=== PATIENT | male | born 2000 | race Caucasian/White ===

== ENCOUNTER 2018-04-19 15:35 | Emergency (ER) | payer OTHER ==
[2018-04-19] MEDS ORDERED: NORMAL SALINE 1000 ML 1,000 ML IV ONE (17:08)
--- NOTE | 2018-04-19 17:14 | ER Document Report ---
ED Medical Screen (RME) - General Chief Complaint: Swallowed Foreign Body Stated Complaint: FOOD STUCK IN ESOPHAGUS Time Seen by Provider: 04/19/18 17:05 Mode of Arrival: Ambulatory Information source: Patient Notes: This is a 17-year-old man who presents to the emergency room with a food bolus stuck in the esophagus since 11:15 AM. Patient states he was eating chicken. Patient states that this has happened before and he had an EGD for a food bolus 2 years ago in [place]. He states that food does often get stuck and he can usually coax it down into his stomach with some carbonated drinks. He has been unable to do that today. He denies any medicines or allergies. Dr. Hernandez was called. They should be getting the endoscopy team in in approximately 1 hour. TRAVEL OUTSIDE OF THE [place] IN LAST 30 DAYS: No - Related Data Allergies/Adverse Reactions: No Known Allergies Allergy (Unverified 04/19/18 15:46) Past Medical History - Social History Chew tobacco use (# tins/day): No Frequency of alcohol use: Occasional Drug Abuse: None Renal/ Medical History: Denies: Hx Peritoneal Dialysis Physical Exam - Vital signs Vitals: Temp Pulse Resp BP Pulse Ox 98.0 F 76 14 119/64 97 04/19/18 15:50 04/19/18 15:50 04/19/18 15:50 04/19/18 15:50 04/19/18 15:50 Course - Vital Signs Vital signs: Temp Pulse Resp BP Pulse Ox 98.0 F 76 14 119/64 97 04/19/18 15:50 04/19/18 15:50 04/19/18 15:50 04/19/18 15:50 04/19/18 15:50
[2018-04-19] MEDS ORDERED: FENTANYL CITRATE INJ/PF 100 MCG/2 ML AMPUL ONE (18:02)
[2018-04-19] MEDS ORDERED: ONDANSETRON HCL INJ/PF 4 MG/2 ML SDV ONE (18:02)
[2018-04-19] MEDS ORDERED: DIPHENHYDRAMINE HCL 50 MG/ML VIAL ONE (18:02)
--- NOTE | 2018-04-19 18:02 | ER Document Report ---
ED Foreign Body - General Chief Complaint: Swallowed Foreign Body Stated Complaint: FOOD STUCK IN ESOPHAGUS Time Seen by Provider: 04/19/18 17:05 Mode of Arrival: Ambulatory Information source: Patient TRAVEL OUTSIDE OF THE [place] IN LAST 30 DAYS: No - HPI Patient complains to provider of: Esophageal foreign body Location of foreign body: Throat Onset: This morning Onset/Duration: Sudden Quality of pain: Achy Severity: Mild Pain Level: 1 Notes: Patient is a 17-year-old male who is otherwise healthy, presenting to the emergency room complaining of esophageal food bolus, times approximately 2 years ago and required endoscopy, at home he did try drinking soda and was unsuccessful, he does report eating chicken around 11:00 this morning which is what he believes to be stuck in his esophagus, otherwise he has had nothing to eat or drink, is unable to swallow his secretions, complains of some epigastric pain, denies any history of complications secondary to anesthesia - Related Data Allergies/Adverse Reactions: No Known Allergies Allergy (Unverified 04/19/18 15:46) Past Medical History - General Information source: Patient - Social History Smoking Status: Never Smoker Chew tobacco use (# tins/day): No Frequency of alcohol use: Occasional Drug Abuse: None Family History: Reviewed & Not Pertinent Patient has suicidal ideation: No Patient has homicidal ideation: No Renal/ Medical History: Denies: Hx Peritoneal Dialysis Review of Systems - Review of Systems Constitutional: No symptoms reported EENT: No symptoms reported Cardiovascular: No symptoms reported Respiratory: No symptoms reported Gastrointestinal: See HPI Genitourinary: No symptoms reported Male Genitourinary: No symptoms reported Musculoskeletal: No symptoms reported Skin: No symptoms reported Hematologic/Lymphatic: No symptoms reported Neurological/Psychological: No symptoms reported -: Yes All other systems reviewed and negative Physical Exam - Vital signs Vitals: Temp Pulse Resp BP Pulse Ox 98.0 F 76 14 119/64 97 04/19/18 15:50 04/19/18 15:50 04/19/18 15:50 04/19/18 15:50 04/19/18 15:50 Interpretation: Normal - General General appearance: Appears well, Alert In distress: None - HEENT Head: Normocephalic, Atraumatic Eyes: Normal Conjunctiva: Normal Extraocular movements intact: Yes Eyelashes: Normal Pupils: PERRL Pharynx: Normal - Respiratory Respiratory status: No respiratory distress Chest status: Nontender Breath sounds: Normal Chest palpation: Normal - Cardiovascular Rhythm: Regular Heart sounds: Normal auscultation Murmur: No - Abdominal Inspection: Normal Distension: No distension Bowel sounds: Normal Tenderness: Nontender Organomegaly: No organomegaly - Back Back: Normal, Nontender - Extremities General upper extremity: Normal inspection, Nontender, Normal color, Normal ROM , Normal temperature General lower extremity: Normal inspection, Nontender, Normal color, Normal ROM , Normal temperature, Normal weight bearing. No: Anthony's sign - Neurological Neuro grossly intact: Yes Cognition: Normal Orientation: AAOx4 Halie Coma Scale Eye Opening: Spontaneous [place] Coma Scale Verbal: Oriented [place] Coma Scale Motor: Obeys Commands Halie Coma Scale Total: 15 Speech: Normal Motor strength normal: LUE, RUE, LLE, RLE Sensory: Normal - Psychological Associated symptoms: Normal affect, Normal mood - Skin Skin Temperature: Warm Skin Moisture: Dry Skin Color: Normal Course - Re-evaluation Re-evalutation: 04/19/18 18:41 Patient was discussed with Dr. Bowens, on-call surgeon by the physician in triage, who will perform endoscopy in an attempt to remove the esophageal food bolus 04/19/18 19:25 Patient return to the emergency department from endoscopy feeling much better, Dr. Bowens was able to remove the large piece of chicken from his distal esophagus, patient will be discharged with instructions for follow-up and advised to return if symptoms worsen, he was advised to cut his food up into much smaller pieces prior to eating in the future, patient acknowledges understanding and agreement with this plan - Vital Signs Vital signs: Temp Pulse Resp BP Pulse Ox 98.0 F 68 11 L 112/57 L 99 04/19/18 15:50 04/19/18 19:10 04/19/18 19:10 04/19/18 19:10 04/19/18 19:10 - Laboratory Result Diagrams: 04/19/18 17:56 04/19/18 17:56 Laboratory results interpreted by me: 04/19/18 04/19/18 17:56 17:56 Eosinophils % 6.9 H Calcium 10.3 H Total Protein 8.4 H Discharge - Discharge Clinical Impression: Esophageal foreign body Condition: Stable Disposition: HOME, SELF-CARE Instructions: Esophageal Foreign Body ([facility]), Esophageal Food Impaction ([facility]) Additional Instructions: Follow up with your primary care provider and smt machine operator in one to 2 days. Return to the emergency room immediately if symptoms worsen or any additional concerns.
[2018-04-19] MEDS ORDERED: FLUMAZENIL INJ 0.5 MG/5 ML VIAL ONE (18:03)
[2018-04-19] MEDS ORDERED: NALOXONE HCL INJ/PF 0.4 MG/1 ML SDV ONE (18:03)
[2018-04-19] MEDS ORDERED: EPINEPHRINE INJ 1 MG/10 ML DISP.SYRIN ONE (18:03)
[2018-04-19] MEDS ORDERED: GLUCAGON,HUMAN RECOMB 1 MG INJ ONE (18:03)
[2018-04-19 18:04] LABS: ABSOLUTE BASOPHILS # (AUTO) 0.1 10^3/uL (0.0-0.2); ABSOLUTE EOSINOPHILS # (AUTO) 0.4 10^3/uL (0.0-0.6); ABSOLUTE LYMPHOCYTES (AUTO) 1.9 10^3/uL (0.5-4.7); ABSOLUTE MONOCYTES (AUTO) 0.6 10^3/uL (0.1-1.4); ABSOLUTE NEUT (AUTO) 3.2 10^3/uL (1.7-8.2); EOSINOPHILS % (AUTO) 6.9 % (0-6); HEMATOCRIT 46.1 % (37.9-51.0); LYMPHOCYTES % (AUTO) 30.9 % (13-45); MEAN CORPUSCULAR HEMOGLOBIN 29.6 pg (27.0-33.4); MEAN CORPUSCULAR HGB CONC 34.7 g/dL (32.0-36.0); MEAN CORPUSCULAR VOLUME 85 fl (80-97); PLATELET COUNT 216 10^3/uL (150-450); RED BLOOD COUNT 5.41 10^6/uL (4.35-5.55); RED CELL DISTRIBUTION WIDTH 12.6 % (11.5-14.0); SEGMENTED NEUTROPHILS % (AUTO) 52.2 % (42-78); TOTAL CELLS COUNTED % (AUTO) 100 %; WHITE BLOOD COUNT 6.1 10^3/uL (4.0-10.5)
[2018-04-19 18:14] LABS: INTERNATIONAL RATION (INR) 1.04; PROTHROMBIN TIME 14.1 SEC (11.4-15.4)
[2018-04-19 18:22] LABS: ALANINE AMINOTRANSFERASE 21 U/L (10-40); ALBUMIN 5.2 g/dL (3.7-5.6); ALKALINE PHOSPHATASE 89 U/L (65-260); ANION GAP 14 (5-19); ASPARTATE AMINO TRANSFERASE 30 U/L (10-45); BILIRUBIN,DIRECT 0.3 mg/dL (0.0-0.4); BILIRUBIN,TOTAL 0.8 mg/dL (0.2-1.3); BLOOD UREA NITROGEN 16 mg/dL (7-20); CALCIUM 10.3 mg/dL (8.4-10.2); CARBON DIOXIDE 28 mmol/L (22-30); CHLORIDE 101 mmol/L (98-107); GLUCOSE 98 mg/dL (75-110); POTASSIUM 4.8 mmol/L (3.6-5.0); TOTAL PROTEIN 8.4 g/dL (6.3-8.2)
[2018-04-19] MEDS: MIDAZOLAM 2 MG/2 ML INJ ONE ×3 (18:37→18:45)
[2018-04-19 19:31] VITALS: BP 112/63
--- NOTE | 2018-04-19 20:20 | Operative Report ---
Operative Report DATE OF SURGERY: 04/19/18 PREOPERATIVE DIAGNOSIS: Retained foreign body of the esophagus POSTOPERATIVE DIAGNOSIS: same with distal esophageal stricture OPERATION: 1. Esophagogastroduodenoscopy. 2. Removal of foreign body consistent with meat bolus SURGEON: MILI AMIN ANESTHESIA: Moderate Sedation TISSUE REMOVED OR ALTERED: meat bolus COMPLICATIONS: none ESTIMATED BLOOD LOSS: none INTRAOPERATIVE FINDINGS: see below PROCEDURE: Patient was taken from the emergency department to the fifth floor endoscopy suite where he was hooked to monitoring devices and conscious sedation initiated. Surgical plan surgical timeout were conducted The flexible adult upper endoscope was advanced to the oropharynx down the esophagus. The retained fluid bolus was in the distal esophagus. It was retrieved with a multi-eun snare and the entire food bolus brought out in one motion with the endoscope. Repeat endoscopy revealed a patent distal esophagus. The esophagus scope was reintroduced in the oropharynx advanced down through the esophagus through the stomach into the duodenum first and second portions. There was no evidence of a distal pathology. Scope was brought back through the GE junction which is approximately 38 cm from the incisor. Proximal to the GE junction was a circumferential mild white scar consistent with stricture although not tight. There was no indication for further intervention. No mass to biopsy. Scope withdrawn facial oropharynx. Tolerated procedure well. Discharge instructions will be provided to the emergency department staff.
== END 2018-04-19 19:45 | disposition home or self-care (01) ==
LOC: ER 15:35 → EH 18:19 → UNDOADMOB 18:19 → ER 19:45
PROC: 0DC38ZZ Extirpation of Matter from Lower Esophagus, Via Natural or Artificial Opening Endoscopic (ICD-10-PCS; principal; 2018-04-19 18:15)
DX: T18.128A Food in esophagus causing other injury, initial encounter (principal); R10.13 Epigastric pain; X58.XXXA Exposure to other specified factors, initial encounter
CPT/HCPCS: 99283; 96360; 43247; 36415; 85025; 85610; 80053; J2250; J3010; J7030; J0171; J1200; J1610; J2310; J2405; J3490